=== PATIENT | male | born 1965 ===

== ENCOUNTER → 2025-02-21 09:08 | Outpatient (REF) | payer OTHER, SELFPAY | LOC: RAD 09:08 | PROVIDERS: ATTENDING PHYSICIAN Orthopaedic Surgery Hand Surgery; FAMILY PHYSICIAN Internal Medicine | DX: G56.22 Lesion of ulnar nerve, left upper limb (principal) | CPT/HCPCS: 76882 ==

== ENCOUNTER → 2025-06-15 20:13 | Outpatient (REF) | payer OTHER, BC, SELFPAY | LOC: PAVMRI 20:13 | PROVIDERS: ATTENDING PHYSICIAN Orthopaedic Surgery; FAMILY PHYSICIAN Internal Medicine | DX: M25.522 Pain in left elbow (principal); Z98.890 Other specified postprocedural states | CPT/HCPCS: 73221 ==